=== PATIENT | male | born 1990 | race African-American/Black ===

== ENCOUNTER 2018-07-11 16:07 | Emergency (ER) | payer SELFPAY ==
[~2018-07-11] VITALS: Ht 180.3 cm; Wt 83.0 kg
[2018-07-11 16:09] VITALS: BP 134/65; Ht 180.3 cm; Wt 83.0 kg
== END 2018-07-11 16:17 | disposition left against medical advice (07) ==
LOC: ED 16:07
DX: Z53.21 Procedure and treatment not carried out due to patient leaving prior to being seen by health care provider (principal)